=== PATIENT | male | born 1985 | race Caucasian/White ===

== ENCOUNTER 2016-11-05 05:07 | Observation (INO) | payer SELFPAY ==
[~2016-11-05 05:07] MED LIST: PRED50TA PO; Z.0.NO CURRENT MEDS
[2016-11-05 05:15] VITALS: BP 139/84; PULSE 95; RESP 18; TEMP 98.9; O2SAT 98
[2016-11-05] MEDS ORDERED: SODIUM CHLOR 0.9% 1000 ML INJ 1,000 ML IV ONE (05:30)
[2016-11-05] MEDS ORDERED: KETOROLAC TROMETHAMINE 30 MG/ML (IVP) VIAL IV PUSH ONE ×3 (05:30→09:00)
--- NOTE | 2016-11-05 05:31 | PD ---
HPI Chief Complaint: chest pain Time Seen by Provider: 05:09 Travel History International Travel<30 days: No Contact w/Intl Traveler<30days: No History of Present Illness HPI Patient is a 31-year-old male who presents to emergency room with complaints of chest pain. Reports that he has been on a cocaine binge, reports that he has smoked cocaine every day for the past 10 days. Patient reports that he last used cocaine 30 minute prior to onset of his symptoms. Reports that after he used the drugs, he began to have left sided chest pain. Patient reports that pain feels like a "pressure to my chest." Reports that he is feeling sob with his symptoms and is having a hard time taking a deep breath. Denies diaphoresis , n/v/d. Reports no hx of CAD, htn, hyperlipidemia. Patient received ASA 162mg as well as 2 SL nitro on route to ER with no relief of symptoms. PFSH Past Medical History Cardiovascular Problems: No Diabetes: No Diminished Hearing: No Past Surgical History Oral Surgery: Yes (TOOTH EXTRACTON) Social History Alcohol Use: Yes (OCCASIONAL) Tobacco Use: Yes (1 PPD) Substance Use: No Allergies-Medications (Allergen,Severity, Reaction): Coded Allergies: No Known Allergies (Verified , 03/08/10) Reported Meds & Prescriptions Reported Meds & Active Scripts Active Deltasone (Prednisone) 50 Mg Tab 50 Mg PO DIRECTED 1 TAB PO DAILY X 4 DAYS, THEN 1/2 TAB PO DAILY X 4 DAYS. Reported No Current Meds (Miscellaneous Medication) Misc Review of Systems General / Constitutional: No: Fever Eyes: No: Visual changes HENT: No: Headaches Cardiovascular: Positive: Chest Pain or Discomfort Respiratory: Positive: Shortness of Breath Gastrointestinal: No: Abdominal Pain Genitourinary: No: Dysuria Musculoskeletal: No: Pain Skin: No Rash Neurologic: No: Weakness Psychiatric: Positive: Depression, Substance Abuse Endocrine: No: Polydipsia Hematologic/Lymphatic: No: Easy Bruising Physical Exam Narrative GENERAL: moderate distress SKIN: Focused skin assessment warm/dry. HEAD: Atraumatic. Normocephalic. NECK: Trachea midline. No JVD. CARDIOVASCULAR: Regular rate and rhythm. No murmur appreciated. RESPIRATORY: No accessory muscle use. Clear to auscultation. Breath sounds equal bilaterally. GASTROINTESTINAL: Abdomen soft, non-tender, nondistended. Hepatic and splenic margins not palpable. MUSCULOSKELETAL: No obvious deformities. No clubbing. No cyanosis. No edema. NEUROLOGICAL: Awake and alert. No obvious cranial nerve deficits. Motor grossly within normal limits. Normal speech. PSYCHIATRIC: Anxious on exam Data Data Orders Ckmb (Isoenzyme) Profile (11/05/16 05:17) Complete Blood Count With Diff (11/05/16 05:17) Comprehensive Metabolic Panel (11/05/16 05:17) Magnesium (Mg) (11/05/16 05:17) Prothrombin Time / Inr (Pt) (11/05/16 05:17) Act Partial Throm Time (Ptt) (11/05/16 05:17) Troponin I (11/05/16 05:17) Lipase (11/05/16 05:17) Chest, Single Ap (11/05/16 05:17) Ecg Monitoring (11/05/16 05:17) Iv Access Insert/Monitor (11/05/16 05:17) Oximetry (11/05/16 05:17) Ketorolac Inj (Toradol Inj) (11/05/16 05:30) Ns (Bolus) Inj (11/05/16 05:30) MDM Medical Decision Making Medical Screen Exam Complete: Yes Emergency Medical Condition: Yes Interpretation(s) EKG at 0516: NSR at 98BMP, qt/qtc: 343/398, no acute st or t wave changes Differential Diagnosis acs, arrhythmia, drug abuse, electrolyte abnormality, pneumothorax Narrative Course Patient is a 31 year old male with history of cocaine abuse, presents to ER with c/o of chest pain 30 minutes after he smoked cocaine. Patient reports left sided "pressure" to my chest. Patient was given asa 162mg as well as 2 sl nitro with out any relief of symptoms. Patient was placed on a clerical assigner upon arrival to ER, EKG obtained and patient has no acute ST or T wave changes. Plan to obtain lab work including cardiac enzymes. Xray of chest ordered as well. Toradol ordered for relief of pain Diagnosis Primary Impression: Chest pain Qualified Code: R07.9 - Chest pain, unspecified type Additional Impression: Cocaine abuse Admitting Information Admitting Physician Requests: Tootie العلي DO November 05, 2016 05:31
[2016-11-05 05:40] VITALS: PULSE 95; RESP 18; O2SAT 98
[2016-11-05 05:45] LABS: AUTOMATED NEUTROPHIL # 4.4 TH/MM3 (1.8-7.7); BASOPHIL % 0.5 % (0.0-2.0); EOSINOPHIL # 0.2 TH/MM3 (0-0.4); EOSINOPHIL % 1.7 % (0.0-4.0); HEMATOCRIT 46.2 % (39.0-51.0); HEMO FLAGS DIFF FINAL; LYMPHOCYTE # 4.2 TH/MM3 (1.0-4.8); MEAN CELL VOLUME 87.9 FL (80.0-100.0); MEAN CORPUSCULAR HEMOGLOBIN 29.9 PG (27.0-34.0); MONO % 9.9 % (0.0-8.0); NEUT % 44.9 % (16.0-70.0); PLATELET COUNT 192 TH/MM3 (150-450); RED BLOOD COUNT 5.26 MIL/MM3 (4.50-5.90); RED CELL DISTRIBUTION WIDTH 12.9 % (11.6-17.2); WHITE BLOOD COUNT 9.7 TH/MM3 (4.0-11.0)
[2016-11-05 05:54] LABS: APTT (PATIENT) 30.1 SEC (24.3-30.1); PROTHROMBIN TIME - PATIENT 10.7 SEC (9.8-11.6)
[2016-11-05 06:20] LABS: ANION GAP 13 MEQ/L (5-15); AST (GOT) 58 U/L (15-37); BICARBONATE 21.8 MEQ/L (21.0-32.0); BLOOD UREA NITROGEN 16 MG/DL (7-18); CHLORIDE 104 MEQ/L (98-107); GLOMERULAR FILTRATION RATE 80 ML/MIN (>89); MAGNESIUM 2.1 MG/DL (1.5-2.5); POTASSIUM 3.5 MEQ/L (3.5-5.1); SODIUM (NA) 139 MEQ/L (136-145)
[2016-11-05 06:24] LABS: ALKALINE PHOSPHATASE 81 U/L (45-117); ALT (GPT) 127 U/L (12-78); CREATINE KINASE 207 U/L (39-308); TOTAL BILIRUBIN ADULT 0.5 MG/DL (0.2-1.0)
--- NOTE | 2016-11-05 06:29 | RADRPT ---
EXAM DATE/TIME: 11/05/2016 05:28 [facility] COMPARISON: No previous studies available for comparison. INDICATIONS : Chest pain. MEDICAL HISTORY : None. SURGICAL HISTORY : None. ENCOUNTER: Initial ACUITY: 1 day PAIN SCORE: 0/10 LOCATION: Bilateral chest FINDINGS: The lungs are clear without infiltrate, nodule, or mass. There is no appreciable pleural effusion fo r technique. Heart and mediastinum are unremarkable. CONCLUSION: No acute cardiopulmonary disease. Catherine Burns MD on November 05, 2016 at 6:27 Board Certified Radiologist. This report was verified electronically.
[2016-11-05 06:37] LABS: CKMB 1.4 NG/ML (0.5-3.6)
[2016-11-05 07:15] VITALS: RESP 17; O2SAT 98
[2016-11-05 08:00] VITALS: BP 129/68; PULSE 95; RESP 18; TEMP 96; O2SAT 98
[2016-11-05 09:03] VITALS: PULSE 91
[2016-11-05 09:17] LABS: CREATINE KINASE 173 U/L (39-308)
[2016-11-05 09:34] LABS: CKMB 1.5 NG/ML (0.5-3.6)
[2016-11-05] MEDS ORDERED: SODIUM CHLORIDE 0.9% FLUSH 10 ML FLUSH IV FLUSH PRN (09:45)
[2016-11-05] MEDS ORDERED: ONDANSETRON HCL 4 MG/2 ML VIAL IV PRN (09:45)
[2016-11-05] MEDS ORDERED: NITROGLYCERIN 0.4 MG SL 25 TABS/BTL SL PRN (09:45)
[2016-11-05] MEDS ORDERED: ACETAMINOPHEN 500 MG CPLT PO PRN (09:45)
--- NOTE | 2016-11-05 09:45 | HHI.HP ---
HPI Primary Care Physician No Primary Care Physician Chief Complaint Chest pain History of Present Illness 31-year-old male with no significant medical history presents to emergency room for further evaluation of chest pain. Reports using cocaine daily x10 days. Last use early this a.m. Onset approximately 1 or 2 AM. Location left anterior chest. Characterized as chest tightness. No radiation of pain. Duration has been constant currently has "eased up some." Also reports intermittent palpitations this morning. Precipitating factors he believes cocaine. No known relieving factors. Review of Systems General: No fatigue,weakness, fever, chills, or recent illness. HEENT: No STRANGE, no vision changes CV: As stated above. Continues to have left anterior chest tightness improved since admission to hospital. No palpitations, intermittent leg pain, or dizziness RESP: No SOB, cough, recent URI. GI: No nausea, vomiting, bowel changes EXT: No lower leg edema, no paraesthesias MS: No discomfort or change in ROM NEURO: No change in memory, dizziness, difficulty with balance, LOC, motor/ sensory deficits PSYCH: Endorses substance use 12 years. No anxiety, depression, suicidal ideation SKIN: No rashes, no concerning lesions Past Family Social History Allergies: Coded Allergies: No Known Allergies (Verified , 11/05/16) Past Medical History None Past Surgical History None Reported Medications Active No Active Prescriptions or Reported Medications Family History Noncontributory early onset cardiovascular disease. Social History No known diabetes, hyperlipidemia, or hypertension. Endorses cocaine use daily 10 days, and cocaine 12 years intermittently. Tobacco use one pack/weekly. Endorses occasional alcohol. Past cardiac testing None Physical Exam Vital Signs Vital Signs Date Time Temp Pulse Resp B/P Pulse Ox O2 Delivery O2 Flow Rate FiO2 11/05/16 09:03 91 11/05/16 08:00 96.0 95 18 129/68 98 11/05/16 07:15 17 98 Room Air 11/05/16 07:15 98 17 100 Room Air 11/05/16 07:14 16 11/05/16 05:40 95 98 Room Air 11/05/16 05:40 95 18 98 Room Air 11/05/16 05:15 98.9 95 18 139/84 98 Physical Exam GENERAL: Alert WN, WD, NAD, male HEAD: NC, AT EYES: Sclera clear, conjunctiva without injection, pupils equal and round NECK: Supple CV: RRR, without murmur, rub, gallop, no JVD, S1-S2 no S3-S4. RESP: Clear lungs throughout bilateral, no crackles, wheeze, rhonchi, symmetrical chest rise, nonlabored, able to speak in full sentences ABD: Soft, NT, ND, no masses, positive bowel tones EXT: Pulses +24, no dependent edema MS: Normal tone 4 extremities, nontender, no obvious deformities, full range of motion NEURO: CN II through CN XII grossly intact, motor strength 5/5, gait WNL PSYCH: A+O 3, pleasant affect, appropriate speech, appropriate mood and affect , insight and judgment SKIN: Normal turgor, normal texture, no lesions, no rashes, brisk cap refill, even hair distribution Laboratory Laboratory Tests Test 11/05/16 11/05/16 05:30 08:24 White Blood Count 9.7 Red Blood Count 5.26 Hemoglobin 15.7 Hematocrit 46.2 Mean Corpuscular Volume 87.9 Mean Corpuscular Hemoglobin 29.9 Mean Corpuscular Hemoglobin 34.0 Concent Red Cell Distribution Width 12.9 Platelet Count 192 Mean Platelet Volume 8.7 Neutrophils (%) (Auto) 44.9 Lymphocytes (%) (Auto) 43.0 Monocytes (%) (Auto) 9.9 Eosinophils (%) (Auto) 1.7 Basophils (%) (Auto) 0.5 Neutrophils # (Auto) 4.4 Lymphocytes # (Auto) 4.2 Monocytes # (Auto) 1.0 Eosinophils # (Auto) 0.2 Basophils # (Auto) 0.0 CBC Comment DIFF FINAL Differential Comment Prothrombin Time 10.7 Prothromb Time International 1.0 Ratio Activated Partial 30.1 Thromboplast Time Sodium Level 139 Potassium Level 3.5 Chloride Level 104 Carbon Dioxide Level 21.8 Anion Gap 13 Blood Urea Nitrogen 16 Creatinine 1.08 Estimat Glomerular Filtration 80 Rate Random Glucose 108 Calcium Level 8.7 Magnesium Level 2.1 Total Bilirubin 0.5 Aspartate Amino Transf 58 (AST/SGOT) Alanine Aminotransferase 127 (ALT/SGPT) Alkaline Phosphatase 81 Total Creatine Kinase 207 173 Creatine Kinase MB 1.4 1.5 Troponin I LESS THAN 0.02 LESS THAN 0.02 Total Protein 7.6 Albumin 4.1 Lipase 162 Result Diagram: 11/05/1652911/05/16 0530 Imaging Last Impressions Chest X-Ray 11/05/16 0517 Signed Impressions: Service Date/Time: Saturday, November 05, 2016 05:28 - CONCLUSION: No acute cardiopulmonary disease. Catherine Burns MD Course EKGs Normal sinus rhythm, normal axis, no ST or T-segment changes Assessment and Plan Assessment and Plan #1 Chest painadmitted to chest pain center. Seen and evaluated by Dr. Avi Ty. If ruled out with 3 sets of cardiac enzymes and EKG, will discharge later this afternoon. Chest pain related to recent cocaine use. #2 Cocaine usestrongly encouraged patient to quit using cocaine. Educated and counseled on risk of myocardial infarction and use of cocaine. #3 Tobacco usecounseled and educated on effects of tobacco use. Encouraged him to quit smoking. Sushma Renee November 05, 2016 09:45
[2016-11-05 12:00] VITALS: BP 124/61; PULSE 79; RESP 18; TEMP 96.4; O2SAT 99
[2016-11-05 12:03] LABS: CREATINE KINASE 158 U/L (39-308)
[2016-11-05 12:15] LABS: CKMB 1.3 NG/ML (0.5-3.6)
--- NOTE | 2016-11-05 12:23 | HHI.DCPOC ---
Discharge Care Plan Diagnosis: (1) Atypical chest pain (2) Cocaine abuse Goals to Promote Your Health * To prevent worsening of your condition and complications * To maintain your health at the optimal level Directions to Meet Your Goals Take your medications as prescribed Follow your dietary instruction Follow activity as directed Keep your appointments as scheduled Take your immunizations and boosters as scheduled If your symptoms worsen call your PCP, if no PCP go to Urgent Care Center or Emergency Room Smoking is Dangerous to Your Health. Avoid second hand smoke Call the 24-hour hour crisis hotline for domestic abuse at Sushma Renee November 05, 2016 12:22
--- NOTE | 2016-11-05 14:45 | EKG ---
Date Performed: 11/05/2016 Time Performed: 08:48:18 PTAGE: 31 years EKG: Sinus rhythm NON-SPECIFIC ST/T WAVE CHANGES PREVIOUS TRACING : 11/05/2016 08.43 Compared to prior tracing no significant change DOCTOR: Jose Gordon Interpretating Date/Time 11/05/2016 14:43:35
--- NOTE | 2016-11-05 19:28 | EKG ---
Date Performed: 11/05/2016 Time Performed: 05:16:03 PTAGE: 31 years EKG: Sinus rhythm NONSPECIFIC T-WAVE ABNORMALITY PREVIOUS TRACING : 03/12/2008 09.54 Compared to prior tracing no significant change DOCTOR: Daljit Bolton Interpretating Date/Time 11/05/2016 19:26:41
[2016-11-05] MEDS ORDERED: SODIUM CHLORIDE 0.9% FLUSH 10 ML FLUSH IV FLUSH SCH (21:00)
--- NOTE | 2016-11-07 12:56 | EKG ---
Date Performed: 11/05/2016 Time Performed: 11:48:09 PTAGE: 31 years EKG: Sinus rhythm NORMAL ECG INTERPRETATION BASED ON A DEFAULT AGE OF 41 YEARS NO PREVIOUS TRACING DOCTOR: Avi Ty Interpretating Date/Time 11/07/2016 12:54:50
== END 2016-11-05 13:16 | disposition home or self-care (01) ==
LOC: NEPC 05:07 → NEDA 06:40 → NEPHCDU 07:58
PROVIDERS: ADMIT Internal Medicine Interventional Cardiology; ATTEND Internal Medicine Interventional Cardiology
DX: R07.89 Other chest pain (principal); F14.10 Cocaine abuse, uncomplicated; F17.200 Nicotine dependence, unspecified, uncomplicated
CPT/HCPCS: 71010; 80053; 82550; 82552; 83690; 83735; 84484; 85025; 85610; 85730; 93005; 96361; 96374; 96375; 99285; G0378; J1885; J7030